=== PATIENT | male | born 1970 | race Caucasian/White ===

== ENCOUNTER 2018-12-03 10:58 | Emergency (ER) | payer SELFPAY ==
[~2018-12-03] VITALS: Ht 172.7 cm; Wt 85.9 kg
[2018-12-03 11:01] VITALS: Ht 172.7 cm; Wt 85.9 kg
[2018-12-03 11:59] LABS: ALBUMIN 3.5 g/dL (3.4-5.0); ALKALINE PHOSPHATASE 64 U/L (46-116); ALT (SGPT) 41 U/L (10-68); AMYLASE - SERUM 57 U/L (25-115); BILIRUBIN - TOTAL 0.15 mg/dL (0.2-1.3); CALC OSMOLALITY 286 mosm/kg (275-300); CALCIUM 9.3 mg/dL (8.5-10.1); CARBON DIOXIDE 26.1 mmol/L (21.0-32.0); CHLORIDE - SERUM 109 mmol/L (98-107); GLUCOSE 152 mg/dL (74-106); LIPASE 169 U/L (73-393); POTASSIUM - SERUM 3.9 mmol/L (3.5-5.1); SODIUM 143 mmol/L (136-145); TROPONIN-I < 0.017 ng/mL (0.000-0.060); UREA NITROGEN 10 mg/dL (7-18); eGFR NON AFRICAN AMERICAN 85 mL/min (90-120)
[2018-12-03 12:02] LABS: BASOPHILS 0.3 % (0-2); EOSINOPHILS 1.4 % (0-7); HEMATOCRIT 42.4 % (42.0-54.0); HEMOGLOBIN 14.8 g/dL (13.5-17.5); IMMATURE GRANULOCYTES 0.4 % (0-5); LYMPHOCYTES 32.3 % (15-50); MCH 33.3 pg (26.0-34.0); MCHC 34.9 g/dL (31.0-37.0); MCV 95.5 fL (80.0-100.0); MEAN PLATELET VOLUME 10.9 fL (7.4-10.4); MONOCYTES 6.8 % (2-11); NEUTROPHILS 58.8 % (40-80); PLATELET COUNT 313 10x3/uL (130-400); RBC 4.44 10x6/uL (4.20-6.10); RDW 12.6 % (11.5-14.5); WBC 10.7 10x3/uL (4.8-10.8)
[2018-12-03 12:31] LABS: AMORPHOUS SEDIMENT <1+ /lpf (NONE SEEN); APPEARANCE HAZY (CLEAR); BACTERIA FEW /hpf (NONE SEEN); BILIRUBIN NEGATIVE (NEGATIVE); COLOR YELLOW (YELLOW); EPITHELIAL CELLS 0-5 /hpf (0-5); GLUCOSE NEGATIVE (NEGATIVE); GRANULAR CAST RARE /lpf (NONE SEEN); KETONE NEGATIVE (NEGATIVE); MUCUS >1+ /lpf (NONE SEEN); NITRITE NEGATIVE (NEGATIVE); PROTEIN NEGATIVE (NEGATIVE); UROBILINOGEN NORMAL (NORMAL); WHITE CELLS - URINE RARE /hpf (0-5)
[2018-12-03] MEDS ORDERED: IBUPROFEN800 MG PO (15:49)
[2018-12-03 16:45] VITALS: BP 172/90
== END 2018-12-03 16:44 | disposition home or self-care (01) ==
LOC: D.ER 10:58
PROVIDERS: Emergency Medicine
DX: R10.9 Unspecified abdominal pain (principal); N13.30 Unspecified hydronephrosis; R11.10 Vomiting, unspecified